=== PATIENT | female | born 1995 | race African-American/Black ===

== ENCOUNTER 2019-03-26 21:34 | Emergency (ER) | payer MEDICAID ==
[~2019-03-26] VITALS: Ht 170.2 cm; Wt 77.5 kg
[2019-03-27] MEDS ORDERED: SODIUM CHLORIDE 0.9% 1,000 ML IV ONE (01:15)
[2019-03-27] MEDS ORDERED: MORPHINE SULFATE 4 MG/ML CPJ (NOT FOR IM USE) IV ONE (01:15)
[2019-03-27] MEDS ORDERED: ONDANSETRON HCL 4MG/2ML INJ IV ONE (01:15)
[2019-03-27 01:24] LABS: BASOPHILS % 0.9 % (0.0-2.0); EOSINOPHILS % 0.1 % (0.0-5.0); HEMOGLOBIN. 14.7 g/dL (12.0-16.0); LYMPHOCYTES % 20.2 % (20.0-50.0); MEAN CORPUSCULAR HEMOGLOBIN 28.3 pg (28.0-32.0); MEAN CORPUSCULAR VOLUME 84.4 fL (81.0-99.0); MONOCYTES % 8.1 % (2.0-8.0); NEUTROPHILS % 70.7 % (40.0-76.0); PLATELET 327 x1000/uL (130-400); RED BLOOD CELL COUNT 5.21 mill/uL (4.2-5.4)
[2019-03-27 01:28] LABS: CHLORIDE 103 mEq/L (98-107)
[2019-03-27 01:39] LABS: INR 1.1; PROTHROMBIN TIME 10.9 sec (9.6-11.0)
[2019-03-27 02:30] LABS: CLARITY URINE CLOUDY (CLEAR); COLOR URINE DARK YELLOW (YELLOW); KETONES URINE 2+ (NEGATIVE); LEUKOCYTE ESTERASE URINE NEGATIVE (NEGATIVE); NITRITE URINE NEGATIVE (NEGATIVE); OCCULT BLOOD URINE NEGATIVE (NEGATIVE); PROTEIN URINE 1+ (NEGATIVE); SPECIFIC GRAVITY URINE 1.044 (1.005-1.030)
[2019-03-27 02:50] VITALS: BP 123/71
== END 2019-03-27 03:38 | disposition home or self-care (01) ==
LOC: ER 21:34
DX: K80.00 Calculus of gallbladder with acute cholecystitis without obstruction (principal); F12.10 Cannabis abuse, uncomplicated; F17.200 Nicotine dependence, unspecified, uncomplicated
CPT/HCPCS: 36415; 76705; 80053; 81003; 81025; 83690; 85025; 85610; 96361; 96374; 96375; 99284; J2270; J2405; J7030

== ENCOUNTER 2019-03-28 07:47 | Inpatient (IN) | payer MEDICAID ==
[~2019-03-28] VITALS: Ht 180.3 cm; Wt 59.9 kg
[2019-03-28] MEDS ORDERED: MORPHINE SULFATE 4 MG/ML CPJ (NOT FOR IM USE) IV STA (07:57)
[2019-03-28] MEDS ORDERED: ONDANSETRON HCL 4MG/2ML INJ IV STA (07:57)
[2019-03-28] MEDS ORDERED: SODIUM CHLORIDE 0.9% 1,000 ML IV ONE (07:59)
[2019-03-28 08:15] LABS: CHLORIDE 106 mEq/L (98-107)
[2019-03-28 08:16] LABS: PROTHROMBIN TIME 10.7 sec (9.6-11.0)
[2019-03-28 08:19] LABS: BASOPHILS % 0.6 % (0.0-2.0); EOSINOPHILS % 0.4 % (0.0-5.0); HEMATOCRIT. 38.4 % (36.0-48.0); HEMOGLOBIN. 12.8 g/dL (12.0-16.0); LYMPHOCYTES % 27.2 % (20.0-50.0); MEAN CORPUSCULAR HEMOGLOBIN 28.4 pg (28.0-32.0); MEAN CORPUSCULAR VOLUME 85.1 fL (81.0-99.0); MEAN PLATELET VOLUME 8.1 fl (7.4-10.4); MONOCYTES % 5.4 % (2.0-8.0); NEUTROPHILS % 66.4 % (40.0-76.0); PLATELET 272 x1000/uL (130-400); RED BLOOD CELL COUNT 4.51 mill/uL (4.2-5.4)
[2019-03-28] MEDS ORDERED: MORPHINE SULFATE 4 MG/ML CPJ (NOT FOR IM USE) IV ONE (10:00)
[2019-03-28] MEDS ORDERED: MAGNESIUM/ALUMINUM HYDROXIDE/SIMETHICONE 30ML UDC PO PRN (10:45)
[2019-03-28] MEDS ORDERED: HYDROCODONE/ACETAMINOPHEN 5/325MG TABLET PO PRN (10:45)
[2019-03-28] MEDS ORDERED: ACETAMINOPHEN 325MG TABLET PO PRN (10:45)
[2019-03-28] MEDS ORDERED: GUAIFENESIN 200MG/10ML SUGAR FREE UDC PO PRN (10:45)
[2019-03-28] MEDS ORDERED: LORAZEPAM 2MG/ML CPJ IV PRN (10:45)
[2019-03-28] MEDS ORDERED: IPRATROPIUM/ALBUTEROL 0.5-3(2.5)MG/3ML NEB INH PRN (10:45)
[2019-03-28] MEDS ORDERED: DOCUSATE SODIUM 100MG CAPSULE PO PRN (10:45)
[2019-03-28] MEDS ORDERED: DIPHENHYDRAMINE 50MG/ML VIAL IV PRN (10:45)
[2019-03-28] MEDS ORDERED: NA PHOS,M-B/NA PHOS,DI-BA ENEMA 118ML PR PRN (10:45)
[2019-03-28] MEDS ORDERED: ONDANSETRON HCL 4MG/2ML INJ IV PRN (10:45)
[2019-03-28] MEDS ORDERED: CLONIDINE 0.1MG TABLET PO PRN (10:45)
[2019-03-28 11:30] VITALS: BP 115/60
[2019-03-28 12:00] VITALS: BP 113/68
[2019-03-28] MEDS: MORPHINE SULFATE 2 MG/ML CPJ (NOT FOR IM USE) IV PRN ×2 (12:02→20:03)
[2019-03-28] MEDS: ENOXAPARIN 40MG/0.4ML SYR SUBCUT SCH (13:57)
[2019-03-28] MEDS: SODIUM CHLORIDE 0.45% 1,000 ML IV SCH (15:26)
[2019-03-28 16:08] VITALS: BP 98/60
[2019-03-28 16:10] LABS: CHLORIDE 107 mEq/L (98-107)
[2019-03-28] MEDS ORDERED: POTASSIUM CHLORIDE 20MEQ TABLET SR PO NR (19:00)
[2019-03-28 20:00] VITALS: BP 137/73
[2019-03-29] VITALS: BP 102/62
[2019-03-29] MEDS: SODIUM CHLORIDE 0.45% 1,000 ML IV SCH ×2 (00:11→12:17)
[2019-03-29] MEDS: MORPHINE SULFATE 2 MG/ML CPJ (NOT FOR IM USE) IV PRN ×2 (00:12→22:15)
[2019-03-29 04:00] VITALS: BP 104/61
[2019-03-29 07:24] LABS: BASOPHILS % 0.6 % (0.0-2.0); HEMATOCRIT. 35.8 % (36.0-48.0); HEMOGLOBIN. 12.1 g/dL (12.0-16.0); LYMPHOCYTES % 44.2 % (20.0-50.0); MEAN CORPUSCULAR HEMOGLOBIN 28.8 pg (28.0-32.0); MEAN CORPUSCULAR VOLUME 85.4 fL (81.0-99.0); MEAN PLATELET VOLUME 8.3 fl (7.4-10.4); MONOCYTES % 5.7 % (2.0-8.0); NEUTROPHILS % 48.5 % (40.0-76.0); PLATELET 252 x1000/uL (130-400); RED BLOOD CELL COUNT 4.19 mill/uL (4.2-5.4); RED CELL DISTRIBUTION WIDTH 13.9 % (11.6-14.6)
[2019-03-29 07:34] LABS: CHLORIDE 105 mEq/L (98-107)
[2019-03-29 07:44] LABS: LDL CHOLESTEROL 64 mg/dL (5-100)
[2019-03-29 07:46] LABS: HDL CHOLESTEROL 50 mg/dL (40-59)
[2019-03-29 08:00] VITALS: BP_SYST 112; BP_SYST 122; BP_DIAS 60; BP_DIAS 66
[2019-03-29] MEDS: FAMOTIDINE 20MG/2ML VIAL IV SCH ×2 (10:43→21:00)
[2019-03-29 12:00] VITALS: BP_SYST 108; BP_SYST 123; BP_DIAS 62; BP_DIAS 80
[2019-03-29] MEDS: ENOXAPARIN 40MG/0.4ML SYR SUBCUT SCH (12:17)
[2019-03-29 16:00] VITALS: BP_SYST 111; BP_SYST 117; BP_DIAS 58; BP_DIAS 67
[2019-03-29 20:00] VITALS: BP 110/68
[2019-03-30] VITALS: BP 101/55
[2019-03-30 04:00] VITALS: BP 95/52
[2019-03-30 08:00] VITALS: BP 107/67
[2019-03-30] MEDS: FAMOTIDINE 20MG/2ML VIAL IV SCH (09:26)
[2019-03-30 10:13] VITALS: BP 107/67
== END 2019-03-30 12:00 | disposition home or self-care (01) | DRG 241 ==
LOC: ER 07:58 → 6EST 10:21 → ENRESERV 10:36
PROVIDERS: ADMIT Internal Medicine; ATTEND Internal Medicine
DX: K29.70 Gastritis, unspecified, without bleeding (principal); E86.0 Dehydration; I10 Essential (primary) hypertension
CPT/HCPCS: 36415; 76705; 80048; 80061; 96361; 96374; 96375; 96376; 99285; J1650; J2270; J2405; J3490; J7030

== ENCOUNTER 2019-10-20 15:43 | Emergency (ER) | payer MEDICAID ==
[~2019-10-20] VITALS: Ht 180.3 cm; Wt 61.0 kg
[2019-10-20] MEDS ORDERED: SODIUM CHLORIDE 0.9% 1,000 ML IV ONE (18:13)
[2019-10-20] MEDS ORDERED: MORPHINE SULFATE 4 MG/ML CPJ (NOT FOR IM USE) IV STA (18:13)
[2019-10-20] MEDS ORDERED: ONDANSETRON HCL 4MG/2ML INJ IV STA (18:13)
[2019-10-20] MEDS ORDERED: MAGNESIUM/ALUMINUM HYDROXIDE/SIMETHICONE 30ML UDC PO ONE (18:15)
[2019-10-20] MEDS ORDERED: VISCOUS LIDOCAINE 2% 15 ML UDC PO ONE (18:15)
[2019-10-20] MEDS ORDERED: FAMOTIDINE 20MG/2ML VIAL IV ONE (18:15)
[2019-10-20 18:27] LABS: CLARITY URINE CLOUDY (CLEAR); COLOR URINE DARK YELLOW (YELLOW); KETONES URINE 3+ (NEGATIVE); LEUKOCYTE ESTERASE URINE NEGATIVE (NEGATIVE); NITRITE URINE NEGATIVE (NEGATIVE); OCCULT BLOOD URINE 1+ (NEGATIVE); PROTEIN URINE 2+ (NEGATIVE); SPECIFIC GRAVITY URINE 1.046 (1.005-1.030)
[2019-10-20 18:37] LABS: *AMPHETAMINES SCREEN URINE NEGATIVE (NEGATIVE); *BARBITURATES SCREEN URINE NEGATIVE (NEGATIVE); *BENZODIAZEPINES SCREEN URINE NEGATIVE (NEGATIVE); *COCAINE SCREEN URINE NEGATIVE (NEGATIVE); METHADONE URINE SCREEN NEGATIVE (NEGATIVE); PHENCYCLIDINE URINE SCREEN NEGATIVE (NEGATIVE)
[2019-10-20 18:40] LABS: BASOPHILS % 0.4 % (0.0-2.0); HEMATOCRIT. 43.5 % (36.0-48.0); HEMOGLOBIN. 14.4 g/dL (12.0-16.0); LYMPHOCYTES % 8.3 % (20.0-50.0); MEAN CORPUSCULAR HEMOGLOBIN 27.9 pg (28.0-32.0); MEAN CORPUSCULAR VOLUME 84.5 fL (81.0-99.0); MEAN PLATELET VOLUME 8.5 fl (7.4-10.4); MONOCYTES % 4.6 % (2.0-8.0); NEUTROPHILS % 86.7 % (40.0-76.0); PLATELET 263 x1000/uL (130-400); RED BLOOD CELL COUNT 5.15 mill/uL (4.2-5.4); RED CELL DISTRIBUTION WIDTH 14.9 % (11.6-14.6)
[2019-10-20 18:41] LABS: CANNABINOID URINE SCREEN PRESUMTIVE POSITIVE (NEGATIVE)
[2019-10-20 18:46] LABS: CHLORIDE 106 mEq/L (98-107)
[2019-10-20 18:51] LABS: ETHANOL BLOOD < 10 mg/dL
[2019-10-20 18:56] LABS: HCG SCREEN NEGATIVE
[2019-10-20] MEDS ORDERED: KETOROLAC 30MG/ML VIAL IV ONE (20:00)
[2019-10-20 22:00] VITALS: BP 110/58
[2019-10-25 08:28] LABS: OPIATES URINE SCREEN NEGATIVE (NEGATIVE)
== END 2019-10-21 00:06 | disposition home or self-care (01) ==
LOC: ER 15:43
DX: K29.70 Gastritis, unspecified, without bleeding (principal); K21.9 Gastro-esophageal reflux disease without esophagitis; N39.0 Urinary tract infection, site not specified; R11.2 Nausea with vomiting, unspecified; Z87.19 Personal history of other diseases of the digestive system
CPT/HCPCS: 36415; 76705; 80053; 80305; 80320; 81003; 81025; 83690; 83880; 84484; 84703; 85025; 96361; 96374; 96375; 99284; J1885; J2270; J2405; J3490; J7030; G0480

== ENCOUNTER 2020-07-27 06:46 | Emergency (ER) | payer MEDICAID ==
[~2020-07-27] VITALS: Ht 180.3 cm; Wt 60.0 kg
[2020-07-27 07:05] VITALS: BP 138/91
[2020-07-27] MEDS ORDERED: ACETAMINOPHEN WITH CODEINE 300/30MG TABLET PO ONE (07:30)
[2020-07-27] MEDS ORDERED: TETANUS, DIPHTHERIA, PERTUSSIS VAC/PF 0.5ML (>7YR OLD) IM ONE (07:30)
== END 2020-07-27 07:55 | disposition home or self-care (01) ==
LOC: ER 06:46
DX: L03.114 Cellulitis of left upper limb (principal); W55.01XA Bitten by cat, initial encounter; Y93.89 Activity, other specified; Y92.89 Other specified places as the place of occurrence of the external cause; Y99.8 Other external cause status
CPT/HCPCS: 90471; 90715; 99283

== ENCOUNTER 2021-10-20 03:28 | Inpatient (IN) | payer MEDICAID ==
[~2021-10-20] VITALS: Ht 180.3 cm; Wt 59.9 kg
[2021-10-20] MEDS ORDERED: ONDANSETRON HCL 4MG/2ML INJ IV STA (03:46)
[2021-10-20] MEDS ORDERED: MORPHINE SULFATE 4 MG/ML CPJ (NOT FOR IM USE) IV STA (03:46)
[2021-10-20] MEDS ORDERED: SODIUM CHLORIDE 0.9% 1,000 ML IV ONE (04:00)
[2021-10-20 04:29] LABS: CHLORIDE 103 mEq/L (98-107)
[2021-10-20 04:33] LABS: HCG SCREEN NEGATIVE
[2021-10-20 04:37] LABS: HEMATOCRIT. 40.2 % (36.0-48.0); HEMOGLOBIN. 13.4 g/dL (12.0-16.0); MEAN CORPUSCULAR HEMOGLOBIN 31.2 pg (28.0-32.0); MEAN CORPUSCULAR VOLUME 93.8 fL (81.0-99.0); MEAN PLATELET VOLUME 7.6 fl (7.4-10.4); PLATELET 376 x1000/uL (130-400); RED BLOOD CELL COUNT 4.28 mill/uL (4.2-5.4); RED CELL DISTRIBUTION WIDTH 14.9 % (11.6-14.6)
[2021-10-20 05:53] LABS: CLARITY URINE CLEAR (CLEAR); COLOR URINE YELLOW (YELLOW); KETONES URINE 4+ (NEGATIVE); LEUKOCYTE ESTERASE URINE NEGATIVE (NEGATIVE); NITRITE URINE NEGATIVE (NEGATIVE); OCCULT BLOOD URINE 3+ (NEGATIVE); PROTEIN URINE 2+ (NEGATIVE); SPECIFIC GRAVITY URINE 1.024 (1.005-1.030); UROBILINOGEN URINE 0.2 E.U./dL (0.2-1.0)
[2021-10-20] MEDS ORDERED: DEXT 5%/0.9% NACL 1,000 ML IV ONE (06:30)
[2021-10-20] MEDS ORDERED: MORPHINE SULFATE 4 MG/ML CPJ (NOT FOR IM USE) IV ONE ×2 (06:30→11:30)
[2021-10-20 07:15] LABS: PLATELET ESTIMATE NORMAL
[2021-10-20] MEDS ORDERED: IOHEXOL-300 100 ML BOTTLE ONE (07:22)
[2021-10-20] MEDS ORDERED: METOCLOPRAMIDE HCL 10MG/2ML VIAL IV ONE (11:30)
[2021-10-20] MEDS ORDERED: ACETAMINOPHEN 650MG SUPP PR PRN (22:00)
[2021-10-20] MEDS ORDERED: ONDANSETRON HCL 4MG/2ML INJ IV PRN (22:00)
[2021-10-20] MEDS: METRONIDAZOLE 500 MG PREMIX 100 ML IV SCH (23:15)
[2021-10-20] MEDS: PANTOPRAZOLE SODIUM 40 MG/VIAL IV SCH (23:15)
[2021-10-20] MEDS: HYDROMORPHONE HCL/PF 2MG/ML CPJ IV PRN (23:29)
[2021-10-20] MEDS: DEXT 5%/0.45% NACL 1000ML 1,000 ML IV SCH (23:45)
[2021-10-21] MEDS: HYDROMORPHONE HCL/PF 2MG/ML CPJ IV PRN ×2 (05:14→09:38)
[2021-10-21] MEDS: METRONIDAZOLE 500 MG PREMIX 100 ML IV SCH (06:00)
[2021-10-21] MEDS ORDERED: NALOXONE HCL 0.4MG/ML VIAL IV PRN (08:00)
[2021-10-21 08:22] LABS: BASOPHILS % 0.5 % (0.0-2.0); EOSINOPHILS % 0.8 % (0.0-5.0); HEMATOCRIT. 37.4 % (36.0-48.0); HEMOGLOBIN. 12.8 g/dL (12.0-16.0); MEAN CORPUSCULAR HEMOGLOBIN 31.4 pg (28.0-32.0); MEAN CORPUSCULAR VOLUME 91.9 fL (81.0-99.0); MEAN PLATELET VOLUME 7.3 fl (7.4-10.4); MONOCYTES % 7.1 % (2.0-8.0); NEUTROPHILS % 75.6 % (40.0-76.0); PLATELET 287 x1000/uL (130-400); RED BLOOD CELL COUNT 4.07 mill/uL (4.2-5.4); RED CELL DISTRIBUTION WIDTH 14.4 % (11.6-14.6)
[2021-10-21 08:32] LABS: CHLORIDE 108 mEq/L (98-107)
[2021-10-21 09:00] VITALS: BP 133/77
[2021-10-21] MEDS: PANTOPRAZOLE SODIUM 40 MG/VIAL IV SCH (09:37)
[2021-10-21 09:40] VITALS: BP 133/77
[2021-10-21] MEDS ORDERED: KETOROLAC 15MG/ML VIAL IV PRN (11:15)
[2021-10-21 12:00] VITALS: BP 144/78
[2021-10-21] MEDS ORDERED: LEVOFLOXACIN 500MG PREMIX 100 ML IV SCH ×2 (13:00→23:00)
[2021-10-21 13:33] VITALS: BP 144/78
[2021-10-21] MEDS: METOCLOPRAMIDE HCL 10MG/2ML VIAL IV SCH ×2 (13:34→18:19)
[2021-10-21] MEDS ORDERED: METRONIDAZOLE 500 MG PREMIX 100 ML IV SCH (14:00)
[2021-10-21] MEDS: DEXT 5%/0.45% NACL 1000ML 1,000 ML IV SCH (18:19)
== END 2021-10-21 19:00 | disposition left against medical advice (07) | DRG 249 ==
LOC: ER 03:46 → EDBEDREQSVC 08:08 → MICUSO 14:59 → EDBEDREQTM 15:02 → EDBEDREQ 15:02 → 6EST 10-21 08:34
PROVIDERS: ADMIT Hospitalist; ATTEND Hospitalist
DX: K52.9 Noninfective gastroenteritis and colitis, unspecified (principal); E88.89 Other specified metabolic disorders; E86.0 Dehydration; F12.90 Cannabis use, unspecified, uncomplicated; Z53.29 Procedure and treatment not carried out because of patient's decision for other reasons; Z82.49 Family history of ischemic heart disease and other diseases of the circulatory system; Z20.822 Contact with and (suspected) exposure to COVID-19; F10.20 Alcohol dependence, uncomplicated; Z87.19 Personal history of other diseases of the digestive system
CPT/HCPCS: 36415; 74177; 76700; 80053; 81003; 84703; 85025; 87426; 99285; C9113; J1170; J1885; J1956; J2270; J2405; J2765; J3490; J7030; Q9967

== ENCOUNTER 2025-04-04 16:42 | Inpatient (IN) | payer MEDICAID ==
[~2025-04-04] VITALS: Ht 180.3 cm; Wt 60.3 kg
[2025-04-04 16:42] VITALS: O2SAT 100
[~2025-04-04 16:42] MED LIST: MECL-217 MT
[2025-04-04 17:47] LABS: GLUCOSE URINE NEGATIVE (NEGATIVE); KETONES URINE 4+ (NEGATIVE); LEUKOCYTE ESTERASE URINE TRACE (NEGATIVE); NITRITE URINE NEGATIVE (NEGATIVE); OCCULT BLOOD URINE 1+ (NEGATIVE); PH URINE 6.0 (4.5-8.0); PROTEIN URINE 3+ (NEGATIVE); SPECIFIC GRAVITY URINE 1.037 (1.005-1.030); UROBILINOGEN URINE 1.0 E.U./dL (0.2-1.0)
[2025-04-04 17:50] LABS: *AMPHETAMINES SCREEN URINE NEGATIVE (NEGATIVE); *BARBITURATES SCREEN URINE NEGATIVE (NEGATIVE); *BENZODIAZEPINES SCREEN URINE NEGATIVE (NEGATIVE); *COCAINE SCREEN URINE NEGATIVE (NEGATIVE); METHADONE URINE SCREEN NEGATIVE (NEGATIVE); OPIATES URINE SCREEN NEGATIVE (NEGATIVE); PHENCYCLIDINE URINE SCREEN NEGATIVE (NEGATIVE)
[2025-04-04 17:51] LABS: CANNABINOID URINE SCREEN PRESUMPTIVE POSITIVE (NEGATIVE); ECSTASY MDMA SCREEN URINE NEGATIVE (NEGATIVE)
[2025-04-04 17:54] LABS: BASOPHILS % 0.1 % (0.0-2.0); EOSINOPHILS % 0.4 % (0.0-5.0); HEMATOCRIT. 41.4 % (36.0-48.0); HEMOGLOBIN. 13.4 g/dL (12.0-16.0); LYMPHOCYTES % 12.8 % (20.0-50.0); MEAN PLATELET VOLUME 7.9 fl (7.4-10.4); MONOCYTES % 4.9 % (2.0-8.0); NEUTROPHILS % 81.8 % (40.0-76.0); PLATELET 326 x1000/uL (130-400); RED BLOOD CELL COUNT 4.52 mill/uL (4.2-5.4); RED CELL DISTRIBUTION WIDTH 15.4 % (11.6-14.6)
[2025-04-04 18:08] LABS: CLARITY URINE HAZY (CLEAR); COLOR URINE YELLOW (YELLOW)
[2025-04-04 18:09] LABS: CREATININE 1.1 mg/dL (0.6-1.0); UREA NITROGEN BLOOD 15 mg/dL (9-23)
[2025-04-04 18:11] LABS: ASPARTATE AMINOTRANSFERASE 78 IU/L (<34); BILIRUBIN DIRECT 0.3 mg/dL (<=3.0); BILIRUBIN TOTAL 1.5 mg/dL (0.1-1.0); PROTEIN TOTAL 9.0 g/dL (6.0-8.3)
[2025-04-04 18:11] LABS: BACTERIA URINE 1+; MUCUS URINE 2+ /lpf (< = 2+); RBC URINE 0-2 /hpf (0-2); SQUAMOUS EPITHELIAL CELL URINE 3+ /lpf (RARE/1+)
[2025-04-04 18:12] LABS: HCG SCREEN NEGATIVE
[2025-04-04 18:24] LABS: TROPONIN I HIGH SENSITIVITY < 4 ng/L (3.0-34)
[2025-04-04] MEDS: PANTOPRAZOLE SODIUM 40 MG/VIAL IV ONE (18:48)
[2025-04-04] MEDS: MORPHINE SULFATE 4 MG/ML INJ (FOR IV/IM USE) IV ONE (18:48)
[2025-04-04] MEDS: ONDANSETRON HCL 4MG/2ML INJ IV ONE (18:52)
[2025-04-04] MEDS: SODIUM CHLORIDE 0.9% 1,000 ML IV ONE (18:52)
[2025-04-04 22:15] VITALS: BP 150/81; PULSE 85; RESP 18; TEMP 36.8072
[2025-04-05] VITALS: BP 136/80; PULSE 89; RESP 17; TEMP 36.9; O2SAT 100
[2025-04-05] MEDS ORDERED: ONDANSETRON HCL 4MG/2ML INJ IV PRN (01:00)
[2025-04-05] MEDS: MORPHINE SULFATE 2 MG/ML INJ (NOT FOR IM USE) IV PRN (01:49)
[2025-04-05] MEDS: DEXT 5%/0.45% NACL KCL 20MEQ/L 1,000 ML IV SCH (03:47)
[2025-04-05 04:00] VITALS: BP 127/68; PULSE 63; RESP 18; TEMP 36.3; O2SAT 99
[2025-04-05 08:13] LABS: CREATININE 0.9 mg/dL (0.6-1.0); LDL CHOLESTEROL 64 mg/dL (5-100); TRIGLYCERIDE 89 mg/dL (0-150); UREA NITROGEN BLOOD 12 mg/dL (9-23)
[2025-04-05] MEDS: PANTOPRAZOLE SODIUM 40 MG/VIAL IV SCH (08:54)
[2025-04-05 19:04] LABS: CREATININE 0.8 mg/dL (0.6-1.0); UREA NITROGEN BLOOD 11 mg/dL (9-23)
[2025-04-05 20:00] VITALS: BP 133/88; PULSE 88; RESP 18; TEMP 36.6; O2SAT 100
[2025-04-06] VITALS: BP 129/79; PULSE 78; RESP 18; TEMP 36.7; O2SAT 100
[2025-04-06 04:00] VITALS: BP 108/76; PULSE 78; RESP 18; TEMP 36.6; O2SAT 100
[2025-04-06 08:00] VITALS: BP 126/78; PULSE 82; RESP 18; TEMP 36.6; O2SAT 99
[2025-04-06] MEDS: KETOROLAC 30MG/ML VIAL IV PRN (10:17)
[2025-04-06 12:00] VITALS: BP 111/73; PULSE 83; RESP 19; TEMP 36.9; O2SAT 100
[2025-04-06 16:00] VITALS: BP 118/76; PULSE 80; RESP 19; TEMP 36.7; O2SAT 100
[2025-04-06 20:00] VITALS: BP 135/86; PULSE 88; RESP 18; TEMP 36.9; O2SAT 100
[2025-04-07] VITALS: BP 112/69; PULSE 79; RESP 18; TEMP 37.1; O2SAT 100
[2025-04-07 04:00] VITALS: BP 124/76; PULSE 76; RESP 18; TEMP 36.5; O2SAT 100
[2025-04-07 08:00] VITALS: BP 126/82; PULSE 78; RESP 18; TEMP 36.7; O2SAT 100
[2025-04-07 11:22] VITALS: BP 122/76; PULSE 78; RESP 18; TEMP 98
== END 2025-04-07 11:52 | disposition home or self-care (01) | DRG 282 ==
LOC: ER 16:42 → EDBEDREQTM 21:37 → EDBEDREQ 21:37 → ENRESERV 21:49 → 6EST 22:24
PROVIDERS: ADMIT Internal Medicine; ATTEND Internal Medicine
DX: K85.90 Acute pancreatitis without necrosis or infection, unspecified (principal); E87.1 Hypo-osmolality and hyponatremia; F10.10 Alcohol abuse, uncomplicated
CPT/HCPCS: 36415; 71045; 74176; 76705; 80048; 80061; 80076; 80305; 80320; 81003; 82150; 82962; 84478; 84484; 84703; 85025; 99285; J1885; J2270; J2405; J2470; J7030; G0480